=== PATIENT | male | born 1960 | race Two or more races ===

== ENCOUNTER 2024-06-17 14:52 | Outpatient (RCR) | payer MEDICARE, MEDICAID, SELFPAY | END 2024-07-16 23:59 | disposition home or self-care (01) | LOC: SCTC 14:52 | PROVIDERS: PCP Physician Assistant; Referring Provider Physician Assistant; Visit Provider Nurse Practitioner Family | DX: C18.7 Malignant neoplasm of sigmoid colon (principal); K64.8 Other hemorrhoids; K52.9 Noninfective gastroenteritis and colitis, unspecified | CPT/HCPCS: 99212; G0463 ==

== ENCOUNTER 2024-11-06 15:20 | Outpatient (RCR) | payer MEDICARE, MEDICAID, SELFPAY | END 2024-11-13 23:59 | disposition home or self-care (01) | LOC: SCTC 15:20 | PROVIDERS: PCP Physician Assistant; Referring Provider Physician Assistant; Visit Provider Nurse Practitioner Family | DX: Z08 Encounter for follow-up examination after completed treatment for malignant neoplasm (principal); Z85.038 Personal history of other malignant neoplasm of large intestine | CPT/HCPCS: 99212; G0463 ==

== ENCOUNTER 2025-05-08 15:20 | Outpatient (RCR) | payer MEDICARE, MEDICAID, SELFPAY | END 2025-05-16 23:59 | disposition home or self-care (01) | LOC: SCTC 15:20 | PROVIDERS: PCP Physician Assistant; Referring Provider Physician Assistant; Visit Provider Nurse Practitioner Family | DX: Z08 Encounter for follow-up examination after completed treatment for malignant neoplasm (principal); Z85.038 Personal history of other malignant neoplasm of large intestine; Z90.49 Acquired absence of other specified parts of digestive tract; Z92.21 Personal history of antineoplastic chemotherapy; J06.9 Acute upper respiratory infection, unspecified | CPT/HCPCS: 99212; G0463 ==